=== PATIENT | female | born 1980 | race Caucasian/White ===

== ENCOUNTER 2017-09-13 09:40 | Observation (INO) | payer OTHER ==
[~2017-09-13] VITALS: Ht 167.6 cm; Wt 51.1 kg
[2017-09-13] VITALS (26 sets, daily range): BP systolic 98–114; BP diastolic 50–82; PULSE 62–99; RESP 13–21; Ht 167.6 cm; Wt 51.1 kg
[~2017-09-13 09:40] MED LIST: ATROPINE 1 MG/10 ML SYRINGE IV PRN; CEFAZOLIN 1 GM INJ ONE; DIPHENHYDRAMINE 50 MG INJ IV PRN; EPHEDrine SULFATE 50 MG/5 ML SYG IV PRN; FENTAnyl 50 MCG/ML VIAL IV PRN; HYDROmorphONE (0.2 MG/ML) 10ML SYG IV PRN; LABETALOL HCL 20MG INJ IV PRN; MEPERIDINE 25 MG INJ IV PRN; MIDAZOLAM 1 MG/ML 2 ML INJ IV PRN; ONDANSETRON 4 MG INJ IV PRN; OXYCODONE/ACETAMINOPHEN (5/325) TAB PO PRN; hydrALAzine 20 MG INJ IV PRN; morphine (1 MG/ML) 10ML SYRINGE IV PRN
[2017-09-13] MEDS ORDERED: GLYCOPYRROLATE 1 MG INJ ONE (10:44)
[2017-09-13] MEDS ORDERED: ROCURONIUM 50 MG INJ ONE (10:44)
[2017-09-13] MEDS ORDERED: NEOSTIGMINE 3 MG/3 ML SYRINGE ONE (10:44)
[2017-09-13] MEDS ORDERED: FENTAnyl 50 MCG/ML VIAL ONE (10:44)
[2017-09-13] MEDS ORDERED: LIDOCAINE 2% (SDV) 5 ML INJ ONE (10:44)
[2017-09-13] MEDS ORDERED: PROPOFOL 20 ML ONE (10:44)
[2017-09-13] MEDS ORDERED: MIDAZOLAM 1 MG/ML 2 ML INJ ONE (10:44)
[2017-09-13] MEDS ORDERED: DEXAMETHASONE 4 MG/ML 1 ML INJ ONE (10:46)
[2017-09-13] MEDS ORDERED: ONDANSETRON 4 MG INJ ONE (10:47)
--- NOTE | 2017-09-13 11:21 | HPN ---
Date/Time of Note Date/Time of Note DATE: 09/13/17 TIME: 11:21 Interval H&P Admission Note Pt. seen H&P reviewed: No system changes ALEJANDRO BRIAN MD Sep 13, 2017 11:21
[2017-09-13] MEDS ORDERED: BUPIVACAINE 0.5%/EPI (SDV) 30 ML INJ ONE (11:31)
[2017-09-13] MEDS ORDERED: THROMBIN 5000 UNIT VIAL ONE (11:31)
[2017-09-13] MEDS ORDERED: GELATIN SIZE 100 SPONGE ONE (11:31)
[2017-09-13] MEDS ORDERED: SUCCINYLCHOLINE CHLORIDE 100 MG/5 ML SYG IV ONE (11:48)
[2017-09-13] MEDS ORDERED: BETAMET NA PHOS/AC(6 MG/ML) 5ML INJ ONE (11:58)
--- NOTE | 2017-09-13 14:14 | OPR ---
Date/Time of Note Date/Time of Note DATE: 09/13/17 TIME: 14:10 Operative Report Free Text/Dictation DATE OF OPERATION: 09/13/2017 PREOPERATIVE DIAGNOSES: Right sided L4-L5 disk herniation with L5 radiculopathy POSTOPERATIVE DIAGNOSES: Right sided L4-L5 disk herniation with L5 radiculopathy OPERATION PERFORMED: Right L4-L5 microdiscectomy SURGEON: Alejandro Brian MD ANESTHESIA: General endotracheal ESTIMATED BLOOD LOSS: 10 mL SURGICAL INDICATION: The patient is a 37 year-old female who presents with a history of right lower extremity pain and weakness. She was found to have a disc herniation which correlated well with her symptoms. The patient had failed conservative treatment. Risks, benefits, and alternatives to microdiscectomy were explained to the patient and they wished to proceed. Risks explained included but were not exclusive of bleeding, infection, cauda equina syndrome, nerve injury, dural tear, iatrogenic instability, recurrent disc herniation, fracture, vascular injury, bowel injury, stroke, heart attack and pulmonary embolism. DESCRIPTION OF TECHNIQUE: The patient was identified in the preoperative area and taken to the operating room. Rapid induction of general endotracheal anesthesia was performed. The patient was given 2 g of cefazolin for prophylaxis. The patient was then placed in the prone position on the Jair frame on a Mario flat top table with all prominences well padded. The back was prepped and draped in the usual sterile manner. Using a spinal needle and intraoperative fluoroscopy, the appropriate level was clearly identified (L4-L5) . The skin was injected using 0.5% Marcaine with epinephrine. Longitudinal midline incision was then created using a 10 blade. Further dissection through soft tissue was performed using electrocautery down to the spinous processes. The dissection was taken down the right side of the lamina and over the facet joint capsule. A self-retaining retractor was applied. Again, intraoperative fluoroscopy confirmed the appropriate level (L4-5). The microscope was brought into use for microdissection. A small portion of the caudal aspect of the cephalad L4 lamina and medial facet was resected using a high-speed bur. A series of Kerrison rongeurs were then used to resect the ligamentum flavum. The dura and traversing nerve root were both directly visualized. These were retracted gently in a medial direction. Immediately, the extruded disc fragment was noted. The pseudo anulus was incised using an 11 blade. Several loose fragments of disk were removed. These were removed back to a stable portion of the disk. The disk space was further pressurized using a using normal saline through a syringe to ensure that no loose fragments remained behind. Palpation with a ball-tip probe did not reveal any further stenosis. The traversing L5 nerve root was noted to be significantly decompressed. Meticulous attention was paid towards hemostasis using FloSeal as well as Gelfoam and thrombin. Care was taken to remove all FloSeal and Gelfoam prior to wound closure. The fascia was then closed using 1 Vicryl in an interrupted fashion. Subcutaneous tissue was closed using 2-0 Vicryl in an interrupted fashion. The skin was closed using a running 4-0 Monocryl stitch. The wound was dressed using Dermabond and a 4x4 sterile gauze. The patient was returned to the supine position. Shee was extubated immediately postoperatively and taken to the recovery room in stable condition. COMPLICATIONS: None. Procedure Date: Sep 13, 2017 Preoperative Diagnosis Right sided L4-L5 disk herniation with L5 radiculopathy Postoperative Diagnosis Right sided L4-L5 disk herniation with L5 radiculopathy Surgeon see signature line Drafter None Anesthesia Type: general Estimated Blood Loss: 10 - 50 ml's Transfusion none Specimen L4-5 disk Grafts/Implants none Complications none Pt Condition Post Procedure: stable Disposition: PACU Procedure Description DESCRIPTION OF TECHNIQUE: The patient was identified in the preoperative area and taken to the operating room. Rapid induction of general endotracheal anesthesia was performed. The patient was given 2 g of cefazolin for prophylaxis. The patient was then placed in the prone position on the Jair frame on a Mario flat top table with all prominences well padded. The back was prepped and draped in the usual sterile manner. Using a spinal needle and intraoperative fluoroscopy, the appropriate level was clearly identified (L4-L5) . The skin was injected using 0.5% Marcaine with epinephrine. Longitudinal midline incision was then created using a 10 blade. Further dissection through soft tissue was performed using electrocautery down to the spinous processes. The dissection was taken down the right side of the lamina and over the facet joint capsule. A self-retaining retractor was applied. Again, intraoperative fluoroscopy confirmed the appropriate level (L4-5). The microscope was brought into use for microdissection. A small portion of the caudal aspect of the cephalad L4 lamina and medial facet was resected using a high-speed bur. A series of Kerrison rongeurs were then used to resect the ligamentum flavum. The dura and traversing nerve root were both directly visualized. These were retracted gently in a medial direction. Immediately, the extruded disc fragment was noted. The pseudo anulus was incised using an 11 blade. Several loose fragments of disk were removed. These were removed back to a stable portion of the disk. The disk space was further pressurized using a using normal saline through a syringe to ensure that no loose fragments remained behind. Palpation with a ball-tip probe did not reveal any further stenosis. The traversing L5 nerve root was noted to be significantly decompressed. Meticulous attention was paid towards hemostasis using FloSeal as well as Gelfoam and thrombin. Care was taken to remove all FloSeal and Gelfoam prior to wound closure. The fascia was then closed using 1 Vicryl in an interrupted fashion. Subcutaneous tissue was closed using 2-0 Vicryl in an interrupted fashion. The skin was closed using a running 4-0 Monocryl stitch. The wound was dressed using Dermabond and a 4x4 sterile gauze. The patient was returned to the supine position. Shee was extubated immediately postoperatively and taken to the recovery room in stable condition. ALEJANDRO BRIAN MD Sep 13, 2017 14:14
[2017-09-13] MEDS ORDERED: NACL 0.9% 3 ML SYG IV SCH (14:30)
[2017-09-13] MEDS ORDERED: HYDROCODONE/APAP (5/325) TAB PO PRN (14:30)
[2017-09-13] MEDS ORDERED: ONDANSETRON 4 MG INJ IV PRN (14:30)
[2017-09-13] MEDS ORDERED: METHOCARBAMOL 500 MG TAB PO PRN (14:30)
[2017-09-13] MEDS ORDERED: PROCHLORPERAZINE 10 MG TAB PO PRN (14:30)
[2017-09-13] MEDS ORDERED: NALOXONE (0.4 MG/ML) INJ IV PRN (14:30)
[2017-09-13] MEDS: HYDROmorphONE (0.2 MG/ML) 10ML SYG IV PRN ×3 (14:31→14:49)
--- NOTE | 2017-09-13 16:33 | RADRPT ---
PROCEDURE: XR Lumbar Spine. CLINICAL INDICATION: L4-L5 microdiscectomy. TECHNIQUE: Lumbar spine x-rays, 4 intraoperative fluoroscopic views. Fluoroscopy time 6.1 seconds. COMPARISON: None. FINDINGS: Surgical instrumentation is seen posteriorly at the L4-L5 level. Vertebral body heights are normal. Vertebral body alignment is maintained on lateral view. IMPRESSION: Fluoroscopic assistance provided for L4-L5 microdiscectomy. RPTAT: [id number] .Patricia Astudillo MD, MD Date Time Electronically viewed and signed by .Patricia Astudillo MD, on 09/13/2017 16:33 .T/
[2017-09-13] MEDS: CEFAZOLIN 1 GM/50 ML (PMX) 50 ML IVPB SCH (17:56)
[2017-09-13] MEDS: HYDROmorphONE 0.5 MG/0.5 ML SYG IV PRN (19:00)
[2017-09-13] MEDS: HYDROCODONE/APAP (5/325) TAB PO PRN (23:23)
[2017-09-14 00:10] VITALS: BP 104/61; RESP 20
[2017-09-14] MEDS: CEFAZOLIN 1 GM/50 ML (PMX) 50 ML IVPB SCH ×3 (00:27→11:37)
[2017-09-14] MEDS: HYDROmorphONE 0.5 MG/0.5 ML SYG IV PRN (04:07)
[2017-09-14 07:49] VITALS: BP 86/54; RESP 18
--- NOTE | 2017-09-14 08:24 | PDOCDIS ---
Discharge Instructions CONDITION Patient Condition: Good HOME CARE INSTRUCTIONS: Diet Instructions: Regular ACTIVITY: Activity Restrictions: Avoid heavy lifting Bathing Restrictions: Shower FOLLOW UP/APPOINTMENTS Follow-up Plan Follow-up with Dr. Brian in 2 weeks ALEJANDRO BRIAN MD Sep 14, 2017 08:24
[2017-09-14] MEDS: HYDROCODONE/APAP (5/325) TAB PO PRN ×2 (08:49→12:46)
== END 2017-09-14 14:30 | disposition home or self-care (01) ==
LOC: UNDOADMIN 09:40 → REC 09:40 → SDS 09:40 → EDSTATUS 11:30 → SDS 14:07 → REC 16:10 → MS1 17:17
PROVIDERS: ADMIT Orthopaedic Surgery; ATTEND Orthopaedic Surgery
DX: M51.16 Intervertebral disc disorders with radiculopathy, lumbar region (principal)
CPT/HCPCS: 63030; 72100; 84703; 97116; 97162; 97530; 99217; G0378; J0690; J0702; J1100; J1170; J2175; J2250; J2405; J2710; J3010